=== PATIENT | female | born 1955 | race Caucasian/White ===

== ENCOUNTER 2016-11-16 13:52 | Emergency (ER) | payer MEDICAID ==
[~2016-11-16] VITALS: Ht 162.6 cm; Wt 64.0 kg
[~2016-11-16 13:52] MED LIST: ASPI-1159 PO; GLUCOPHAGE; INSULIN; METF10002 PO
[2016-11-16] MEDS ORDERED: ACETAMINOPHEN 500MG TABLET PO ONE (16:45)
[2016-11-16] MEDS ORDERED: ONDANSETRON 4MG ODT PO ONE (16:45)
[2016-11-16 17:39] VITALS: BP 147/85
== END 2016-11-16 17:43 | disposition home or self-care (01) ==
LOC: ER 13:52
DX: R11.0 Nausea (principal); R51 Headache; E11.9 Type 2 diabetes mellitus without complications; Z79.4 Long term (current) use of insulin; Z79.82 Long term (current) use of aspirin; I10 Essential (primary) hypertension; Z98.890 Other specified postprocedural states
CPT/HCPCS: 99283; Q0162; Z7610

== ENCOUNTER 2018-11-13 11:03 | Emergency (ER) | payer MEDICARE, MEDICAID ==
[~2018-11-13] VITALS: Ht 162.6 cm; Wt 59.0 kg
[~2018-11-13 11:03] MED LIST changes: -ASPI-1159 PO; +ASPI-1393 PO; +METF-416 PO; -METF10002 PO
[2018-11-13] MEDS ORDERED: SODIUM CHLORIDE 0.9% 1,000 ML IV ONE (18:15)
[2018-11-13] MEDS ORDERED: KETOROLAC 30MG/ML VIAL IV STA (18:15)
[2018-11-13] MEDS ORDERED: ONDANSETRON HCL 4MG/2ML INJ IV STA (18:15)
[2018-11-13 18:29] VITALS: BP 177/73
[2018-11-13 18:31] LABS: BASOPHILS % 0.7 % (0.0-2.0); EOSINOPHILS % 2.3 % (0.0-5.0); HEMATOCRIT. 40.6 % (36.0-48.0); HEMOGLOBIN. 13.6 g/dL (12.0-16.0); LYMPHOCYTES % 48.4 % (20.0-50.0); MEAN CORPUSCULAR HEMOGLOBIN 33.4 pg (28.0-32.0); MEAN CORPUSCULAR VOLUME 99.7 fL (81.0-99.0); MEAN PLATELET VOLUME 8.3 fl (7.4-10.4); MONOCYTES % 7.4 % (2.0-8.0); NEUTROPHILS % 41.2 % (40.0-76.0); PLATELET 281 x1000/uL (130-400); RED BLOOD CELL COUNT 4.07 mill/uL (4.2-5.4); RED CELL DISTRIBUTION WIDTH 13.7 % (11.6-14.6)
[2018-11-13 18:35] LABS: CHLORIDE 103 mEq/L (98-107)
== END 2018-11-13 20:26 | disposition home or self-care (01) ==
LOC: ER 13:49
DX: R51 Headache (principal); H53.8 Other visual disturbances; I10 Essential (primary) hypertension; E11.9 Type 2 diabetes mellitus without complications; Z79.82 Long term (current) use of aspirin; Z79.84 Long term (current) use of oral hypoglycemic drugs; Z79.4 Long term (current) use of insulin
CPT/HCPCS: 36415; 70450; 80053; 85025; 96374; 96375; 99284; J1885; J2405; J7030

== ENCOUNTER 2018-12-20 11:27 | Inpatient (IN) | payer MEDICARE, MEDICAID ==
[~2018-12-20] VITALS: Ht 157.5 cm; Wt 59.0 kg
[2018-12-20] MEDS ORDERED: MORPHINE SULFATE 4 MG/ML CPJ (NOT FOR IM USE) IV STA (12:05)
[2018-12-20] MEDS ORDERED: ONDANSETRON HCL 4MG/2ML INJ IV STA (12:05)
[2018-12-20] MEDS ORDERED: SODIUM CHLORIDE 0.9% 1,000 ML IV ONE (12:05)
[2018-12-20 12:28] LABS: BASOPHILS % 0.9 % (0.0-2.0); EOSINOPHILS % 1.1 % (0.0-5.0); HEMATOCRIT. 40.5 % (36.0-48.0); LYMPHOCYTES % 35.2 % (20.0-50.0); MEAN CORPUSCULAR HEMOGLOBIN 34.1 pg (28.0-32.0); MEAN CORPUSCULAR VOLUME 98.6 fL (81.0-99.0); MEAN PLATELET VOLUME 8.9 fl (7.4-10.4); MONOCYTES % 7.2 % (2.0-8.0); NEUTROPHILS % 55.6 % (40.0-76.0); PLATELET 295 x1000/uL (130-400); RED BLOOD CELL COUNT 4.11 mill/uL (4.2-5.4); RED CELL DISTRIBUTION WIDTH 13.4 % (11.6-14.6)
[2018-12-20 12:35] LABS: CHLORIDE 102 mEq/L (98-107)
[2018-12-20 12:39] LABS: D-DIMER 0.77 mg/L FEU (<0.50); PARTIAL THROMBOPLASTIN TIME 25.7 sec (23.4-31.0); PROTHROMBIN TIME 9.8 sec (9.6-11.0)
[2018-12-20] MEDS ORDERED: KETOROLAC 15MG/ML VIAL IV ONE (13:45)
[2018-12-20] MEDS ORDERED: ASPIRIN 325MG EC TABLET PO ONE (17:45)
[2018-12-20] MEDS ORDERED: IOHEXOL-350 100 ML BOTTLE ONE (18:27)
[2018-12-20 20:40] VITALS: BP 181/61
[2018-12-20] MEDS ORDERED: CLONIDINE 0.1MG TABLET PO PRN (20:45)
[2018-12-20] MEDS ORDERED: ONDANSETRON HCL 4MG/2ML INJ IV PRN (20:45)
[2018-12-20] MEDS ORDERED: ACETAMINOPHEN 325MG TABLET PO PRN (20:45)
[2018-12-20] MEDS ORDERED: HYDROCODONE/ACETAMINOPHEN 5/325MG TABLET PO PRN (20:45)
[2018-12-20] MEDS ORDERED: LORAZEPAM 0.5MG TABLET PO PRN (20:45)
[2018-12-20] MEDS ORDERED: IPRATROPIUM/ALBUTEROL 0.5-3(2.5)MG/3ML NEB INH PRN (20:45)
[2018-12-20] MEDS ORDERED: DOCUSATE SODIUM 100MG CAPSULE PO PRN (20:45)
[2018-12-20 21:31] VITALS: BP 181/61
[2018-12-20 22:14] LABS: *AMPHETAMINES SCREEN URINE NEGATIVE (NEGATIVE); *BARBITURATES SCREEN URINE NEGATIVE (NEGATIVE); *BENZODIAZEPINES SCREEN URINE NEGATIVE (NEGATIVE); *COCAINE SCREEN URINE NEGATIVE (NEGATIVE); CANNABINOID URINE SCREEN NEGATIVE (NEGATIVE); METHADONE URINE SCREEN NEGATIVE (NEGATIVE)
[2018-12-20 22:15] LABS: OPIATES URINE SCREEN NEGATIVE (NEGATIVE); PHENCYCLIDINE URINE SCREEN NEGATIVE (NEGATIVE)
[2018-12-20] MEDS: AMLODIPINE 5MG TABLET PO SCH (22:16)
[2018-12-20 22:17] LABS: CREATINE KINASE 81 IU/L (26-192)
[2018-12-20 22:18] LABS: CREATINE KINASE MB FRACTION < 1.0 ng/mL (0.5-3.6)
[2018-12-20] MEDS ORDERED: DEXTROSE 50% WATER 50ML SYRINGE IV PRN (22:30)
[2018-12-20] MEDS: BLOOD SUGAR DIAGNOSTIC STRIP TEST SCH (22:34)
[2018-12-20] MEDS: INSULIN LISPRO 100 UNITS/ML SUBCUT SCH (22:39)
[2018-12-20] MEDS ORDERED: ENAL5TAB MT (22:46)
[2018-12-21] VITALS (7 sets, daily range): BP systolic 133–157; BP diastolic 62–81
[2018-12-21] MEDS: BLOOD SUGAR DIAGNOSTIC STRIP TEST SCH ×2 (06:21→12:10)
[2018-12-21] MEDS: INSULIN LISPRO 100 UNITS/ML SUBCUT SCH ×2 (06:21→12:30)
[2018-12-21 06:57] LABS: BASOPHILS % 0.6 % (0.0-2.0); EOSINOPHILS % 2.9 % (0.0-5.0); LYMPHOCYTES % 44.8 % (20.0-50.0); MEAN CORPUSCULAR HEMOGLOBIN 33.5 pg (28.0-32.0); MEAN CORPUSCULAR VOLUME 98.2 fL (81.0-99.0); MEAN PLATELET VOLUME 8.7 fl (7.4-10.4); MONOCYTES % 7.9 % (2.0-8.0); NEUTROPHILS % 43.8 % (40.0-76.0); PLATELET 259 x1000/uL (130-400); RED BLOOD CELL COUNT 4.18 mill/uL (4.2-5.4)
[2018-12-21 07:05] LABS: CHLORIDE 105 mEq/L (98-107)
[2018-12-21 07:11] LABS: LDL CHOLESTEROL 127 mg/dL (5-100); PHOSPHORUS 4.3 mg/dL (2.5-4.9)
[2018-12-21 07:13] LABS: HDL CHOLESTEROL 54 mg/dL (40-59)
[2018-12-21] MEDS ORDERED: ASPIRIN 81MG TABLET PO SCH (09:00)
[2018-12-21] MEDS: AMLODIPINE 5MG TABLET PO SCH (09:39)
== END 2018-12-21 17:14 | disposition home or self-care (01) | DRG 554 ==
LOC: ER 14:36 → 8WST 14:44 → EDBEDREQ 14:47 → ENRESERV 19:51 → 8WST 21:03
PROVIDERS: ADMIT Internal Medicine; ATTEND Internal Medicine
DX: M17.12 Unilateral primary osteoarthritis, left knee (principal); R06.02 Shortness of breath; W10.9XXA Fall (on) (from) unspecified stairs and steps, initial encounter; E78.5 Hyperlipidemia, unspecified; I10 Essential (primary) hypertension; E78.00 Pure hypercholesterolemia, unspecified; M79.605 Pain in left leg; E11.65 Type 2 diabetes mellitus with hyperglycemia; R00.1 Bradycardia, unspecified; Y93.89 Activity, other specified; Y92.098 Other place in other non-institutional residence as the place of occurrence of the external cause; Y99.8 Other external cause status; Z79.4 Long term (current) use of insulin; Z79.82 Long term (current) use of aspirin
CPT/HCPCS: 36415; 71045; 71275; 73502; 73552; 73564; 80048; 80061; 80305; 82550; 82553; 82962; 83036; 83735; 83880; 84100; 84443; 84484; 85379; 93005; 93306; 93970; 96361; 96374; 96375; 97161; 99285; J1815; J1885; J2270; J2405; J7030; Q9967

== ENCOUNTER 2021-03-05 15:28 | Emergency (ER) | payer MEDICARE, MEDICAID ==
[~2021-03-05] VITALS: Ht 165.1 cm; Wt 59.0 kg
[~2021-03-05 15:28] MED LIST changes: -ASPI-1393 PO; +ASPI-1497 PO; +ENAL5TAB21 MT
[2021-03-05] MEDS ORDERED: LIDOCAINE HCL/EPINEPHRINE 1%-EPI 1:100,000 20 ML VIAL INFIL ONE (17:45)
[2021-03-05] MEDS ORDERED: TETANUS, DIPHTHERIA, PERTUSSIS VAC/PF 0.5ML (>10YR OLD) IM ONE (17:45)
[2021-03-05] MEDS ORDERED: HYDROCODONE/ACETAMINOPHEN 5/325MG TABLET PO ONE (17:45)
[2021-03-05] MEDS ORDERED: BACITRACIN ZINC OINT UDPKT TOP ONE (17:45)
[2021-03-05] MEDS ORDERED: HYDR-4001 MT (20:01)
[2021-03-05 20:45] VITALS: BP 156/79
== END 2021-03-05 20:50 | disposition home or self-care (01) ==
LOC: ER 15:28
DX: S01.01XA Laceration without foreign body of scalp, initial encounter (principal); W10.8XXA Fall (on) (from) other stairs and steps, initial encounter; Y93.01 Activity, walking, marching and hiking; Y92.89 Other specified places as the place of occurrence of the external cause; I10 Essential (primary) hypertension; E11.9 Type 2 diabetes mellitus without complications; E78.00 Pure hypercholesterolemia, unspecified; Z79.899 Other long term (current) drug therapy; Z79.4 Long term (current) use of insulin
CPT/HCPCS: 12001; 70450; 90471; 90715; 99284; J3490

== ENCOUNTER 2023-05-18 13:42 | Inpatient (IN) | payer MEDICARE, MEDICAID ==
[~2023-05-18] VITALS: Ht 157.5 cm; Wt 58.1 kg
[~2023-05-18 13:42] MED LIST changes: +ENAL-75 MT; -ENAL5TAB21 MT; +HYDR-4001 MT
[2023-05-18 13:55] VITALS: O2SAT 100
[2023-05-18 14:46] LABS: BASOPHILS % 0.7 % (0.0-2.0); EOSINOPHILS % 2.8 % (0.0-5.0); HEMATOCRIT. 41.5 % (36.0-48.0); HEMOGLOBIN. 13.9 g/dL (12.0-16.0); LYMPHOCYTES % 38.6 % (20.0-50.0); MEAN CORPUSCULAR HEMOGLOBIN 32.9 pg (28.0-32.0); MEAN CORPUSCULAR HGB CONC 33.4 g/dL (31.0-37.0); MEAN CORPUSCULAR VOLUME 98.6 fL (81.0-99.0); MEAN PLATELET VOLUME 8.4 fl (7.4-10.4); MONOCYTES % 6.4 % (2.0-8.0); NEUTROPHILS % 51.5 % (40.0-76.0); PLATELET 294 x1000/uL (130-400); RED BLOOD CELL COUNT 4.21 mill/uL (4.2-5.4); RED CELL DISTRIBUTION WIDTH 13.1 % (11.6-14.6); WHITE BLOOD COUNT 6.6 x1000/uL (4.5-11.0)
[2023-05-18 14:56] LABS: PROTHROMBIN TIME 10.3 sec (9.6-11.0)
[2023-05-18 15:07] LABS: ALANINE AMINOTRANSFERASE 23 IU/L (10-49); ALBUMIN 4.4 g/dL (3.2-4.8); ASPARTATE AMINOTRANSFERASE 19 IU/L (<34); BILIRUBIN TOTAL 0.4 mg/dL (0.1-1.0); CALCIUM 9.5 mg/dL (8.7-10.4); CARBON DIOXIDE 29 mEq/L (21-32); CHLORIDE 103 mEq/L (98-107); CREATININE 0.6 mg/dL (0.6-1.0); GLUCOSE 226 mg/dL (70-105); POTASSIUM 3.9 mEq/L (3.5-5.1); SODIUM 138 mEq/L (136-145); TROPONIN I HIGH SENSITIVITY 4 ng/L (3.0-34); UREA NITROGEN BLOOD 16 mg/dL (9-23)
[2023-05-18] MEDS ORDERED: ASPIRIN 81MG TABLET PO ONE (23:00)
[2023-05-18 23:04] LABS: THYROID STIMULATING HORMONE 2.75 uIU/mL (0.55-4.78)
[2023-05-19 00:01] LABS: CLARITY URINE CLEAR (CLEAR); COLOR URINE YELLOW (YELLOW); GLUCOSE URINE 3+ (NEGATIVE); KETONES URINE NEGATIVE (NEGATIVE); LEUKOCYTE ESTERASE URINE 2+ (NEGATIVE); NITRITE URINE NEGATIVE (NEGATIVE); OCCULT BLOOD URINE NEGATIVE (NEGATIVE); PH URINE 5.5 (4.5-8.0); PROTEIN URINE NEGATIVE (NEGATIVE); SPECIFIC GRAVITY URINE 1.027 (1.005-1.030); UROBILINOGEN URINE 0.2 E.U./dL (0.2-1.0)
[2023-05-19 01:49] LABS: RBC URINE 0-2 /hpf (0-2); SQUAMOUS EPITHELIAL CELL URINE FEW /lpf (RARE/1+); WBC URINE 15-25 /hpf (0-2)
[2023-05-19 01:51] LABS: BACTERIA URINE TRACE
[2023-05-19 05:15] VITALS: BP 171/51; PULSE 52; RESP 18; TEMP 98
[2023-05-19] MEDS ORDERED: ONDANSETRON HCL 4MG/2ML INJ IV PRN (06:15)
[2023-05-19] MEDS ORDERED: ACETAMINOPHEN 325MG TABLET PO PRN (06:15)
[2023-05-19] MEDS ORDERED: HYDROCODONE/ACETAMINOPHEN 5/325MG TABLET PO PRN (06:15)
[2023-05-19] MEDS ORDERED: NON FORMULARY PATIENT HOME MED XX SCH (06:15)
[2023-05-19] MEDS ORDERED: DEXTROSE 50% WATER 50ML SYRINGE IV PRN (06:15)
[2023-05-19] MEDS ORDERED: HYDRALAZINE 20MG/ML VIAL IV PRN (06:15)
[2023-05-19] MEDS ORDERED: NALOXONE HCL 0.4MG/ML VIAL IV PRN (06:45)
[2023-05-19] MEDS: BLOOD SUGAR DIAGNOSTIC STRIP TEST SCH ×4 (07:40→21:00)
[2023-05-19 08:00] VITALS: BP 140/54; PULSE 99; RESP 18; TEMP 98.1
[2023-05-19] MEDS: AMLODIPINE 10MG TABLET PO SCH (09:08)
[2023-05-19] MEDS: ENOXAPARIN 40MG/0.4ML SYR SUBCUT SCH (09:08)
[2023-05-19] MEDS: METFORMIN HCL 500MG TABLET PO SCH ×2 (09:09→17:32)
[2023-05-19] MEDS: ASPIRIN 81MG EC TABLET PO SCH (09:09)
[2023-05-19] MEDS: LOSARTAN 50 MG TABLET PO SCH (09:13)
[2023-05-19] MEDS: INSULIN LISPRO 100 UNITS/ML SUBCUT SCH ×4 (09:20→21:00)
[2023-05-19 10:08] LABS: BASOPHILS % 0.7 % (0.0-2.0); DIFFERENTIAL COMMENT 0; EOSINOPHILS % 2.5 % (0.0-5.0); HEMATOCRIT. 39.3 % (36.0-48.0); HEMOGLOBIN. 12.8 g/dL (12.0-16.0); LYMPHOCYTES % 35.6 % (20.0-50.0); MEAN CORPUSCULAR HEMOGLOBIN 32.8 pg (28.0-32.0); MEAN CORPUSCULAR HGB CONC 32.6 g/dL (31.0-37.0); MEAN CORPUSCULAR VOLUME 100.6 fL (81.0-99.0); MONOCYTES % 6.6 % (2.0-8.0); NEUTROPHILS % 54.6 % (40.0-76.0); PLATELET 279 x1000/uL (130-400); RED CELL DISTRIBUTION WIDTH 13.3 % (11.6-14.6); WHITE BLOOD COUNT 4.6 x1000/uL (4.5-11.0)
[2023-05-19 10:29] LABS: CALCIUM 9.1 mg/dL (8.7-10.4); CARBON DIOXIDE 28 mEq/L (21-32); CHLORIDE 102 mEq/L (98-107); CHOLESTEROL 140 mg/dL (<200); CREATININE 0.6 mg/dL (0.6-1.0); GLUCOSE 372 mg/dL (70-105); HDL CHOLESTEROL 51 mg/dL (>65); LDL CHOLESTEROL 64 mg/dL (5-100); POTASSIUM 3.9 mEq/L (3.5-5.1); SODIUM 139 mEq/L (136-145); TRIGLYCERIDE 79 mg/dL (0-150); UREA NITROGEN BLOOD 17 mg/dL (9-23)
[2023-05-19 12:00] VITALS: BP 107/60; PULSE 67; RESP 18; TEMP 97.9
[2023-05-19 16:00] VITALS: BP 119/61; PULSE 65; RESP 20; TEMP 97.1
[2023-05-19 20:00] VITALS: BP 100/52; PULSE 60; RESP 18; TEMP 97.2
[2023-05-19] MEDS: ATORVASTATIN CALCIUM 40MG TABLET PO SCH (20:58)
[2023-05-20] VITALS: BP 97/49; PULSE 66; RESP 18; TEMP 97.1
[2023-05-20 04:00] VITALS: BP 119/47; PULSE 67; RESP 18; TEMP 97.9
[2023-05-20] MEDS: BLOOD SUGAR DIAGNOSTIC STRIP TEST SCH ×4 (07:40→21:20)
[2023-05-20 08:00] VITALS: BP 105/56; PULSE 64; RESP 18; TEMP 97.9
[2023-05-20] MEDS: ASPIRIN 81MG EC TABLET PO SCH (08:18)
[2023-05-20] MEDS: METFORMIN HCL 500MG TABLET PO SCH ×2 (08:18→17:07)
[2023-05-20] MEDS: AMLODIPINE 10MG TABLET PO SCH (08:18)
[2023-05-20] MEDS: LOSARTAN 50 MG TABLET PO SCH (08:19)
[2023-05-20] MEDS: ENOXAPARIN 40MG/0.4ML SYR SUBCUT SCH (08:20)
[2023-05-20] MEDS: INSULIN LISPRO 100 UNITS/ML SUBCUT SCH ×4 (08:20→21:20)
[2023-05-20] MEDS ORDERED: METOPROLOL TARTRATE 50MG TABLET PO NR ×2 (08:45→09:45)
[2023-05-20] MEDS ORDERED: IOHEXOL-350 100 ML BOTTLE ONE (10:33)
[2023-05-20 12:00] VITALS: BP 108/51; PULSE 50; RESP 20; TEMP 98.4
[2023-05-20 16:00] VITALS: BP 99/66; PULSE 54; RESP 22; TEMP 98.1
[2023-05-20 20:00] VITALS: BP 120/62; PULSE 60; RESP 18; TEMP 97.2
[2023-05-20] MEDS: ATORVASTATIN CALCIUM 40MG TABLET PO SCH (21:20)
[2023-05-21] VITALS: BP 110/49; PULSE 57; RESP 18; TEMP 97.6
[2023-05-21 04:00] VITALS: BP 102/52; PULSE 56; RESP 18; TEMP 97.3
[2023-05-21] MEDS: BLOOD SUGAR DIAGNOSTIC STRIP TEST SCH ×2 (07:42→12:19)
[2023-05-21] MEDS: METFORMIN HCL 500MG TABLET PO SCH (07:43)
[2023-05-21] MEDS: INSULIN LISPRO 100 UNITS/ML SUBCUT SCH ×2 (07:43→12:25)
[2023-05-21 08:01] VITALS: BP 96/53; PULSE 63; RESP 18; TEMP 98.2
[2023-05-21] MEDS ORDERED: IOHEXOL-350 100 ML BOTTLE ONE (10:03)
[2023-05-21 12:02] VITALS: BP 128/73; PULSE 78; RESP 18; TEMP 97.9
[2023-05-21] MEDS: ASPIRIN 81MG EC TABLET PO SCH (12:06)
[2023-05-21] MEDS: AMLODIPINE 10MG TABLET PO SCH (12:06)
[2023-05-21] MEDS: ENOXAPARIN 40MG/0.4ML SYR SUBCUT SCH (12:07)
[2023-05-21 14:57] VITALS: BP 128/73; PULSE 78; TEMP 97.9
== END 2023-05-21 15:40 | disposition home or self-care (01) | DRG 303 ==
LOC: ER 15:02 → 7WST 23:59 → EDBEDREQ 05-19 00:01 → EDBEDREQTM 05-19 00:01
PROVIDERS: ADMIT Internal Medicine; ATTEND Internal Medicine
DX: I25.10 Atherosclerotic heart disease of native coronary artery without angina pectoris (principal); I10 Essential (primary) hypertension; E78.00 Pure hypercholesterolemia, unspecified; F41.9 Anxiety disorder, unspecified; E11.65 Type 2 diabetes mellitus with hyperglycemia
CPT/HCPCS: 36415; 71045; 75571; 80048; 80053; 80061; 81003; 82962; 83036; 83880; 84443; 84484; 85025; 93005; 93306; 99285; J1650; J1815; Q9967

== ENCOUNTER 2024-09-20 11:43 | Emergency (ER) | payer MEDICARE, MEDICAID ==
[~2024-09-20] VITALS: Ht 160 cm; Wt 70.0 kg
[2024-09-20 12:09] VITALS: TEMP 36.9; O2SAT 98
[2024-09-20] MEDS ORDERED: ACET-2708 MT (13:40)
[2024-09-20 13:50] VITALS: BP 153/66; PULSE 55; RESP 16; O2SAT 95
== END 2024-09-20 13:51 | disposition home or self-care (01) ==
LOC: ER 11:43
DX: R07.81 Pleurodynia (principal); E11.9 Type 2 diabetes mellitus without complications; E78.00 Pure hypercholesterolemia, unspecified; I10 Essential (primary) hypertension; Z79.82 Long term (current) use of aspirin; Z79.84 Long term (current) use of oral hypoglycemic drugs; Z79.899 Other long term (current) drug therapy; Z86.11 Personal history of tuberculosis
CPT/HCPCS: 71046; 93005; 99283